=== PATIENT | female | born 1965 | race Caucasian/White ===

== ENCOUNTER 2019-02-27 21:21 | Emergency (ER) | payer BC ==
[2019-02-27] MEDS ORDERED: Acetaminophen/HYDROcodone 325-10 MG Tab PO ONE ×2 (21:22→22:55)
--- NOTE | 2019-02-27 21:50 | EDM.PDOC ---
ED HPI GENERAL MEDICAL PROBLEM - General Chief Complaint: Upper Extremity Injury/Pain Stated Complaint: RT ARM PAIN Time Seen by Provider: 02/27/19 21:35 Source of Information: Reports: Patient - History of Present Illness INITIAL COMMENTS - FREE TEXT/NARRATIVE: pt c/o sudden onset of right shoulder pain while resting in bed, started about 30 minuts ago, describe it as sever and non-radiating, cant move her shoulder, denies Hx of similar problems , had a recent cardiac workup that was neg, pt denies injuries or heavy lifting or any other associated sx or concerns. right shoulder Pain Score (Numeric/FACES): 10 - Related Data Allergies Allergy/AdvReac Type Severity Reaction Status Date / Time ibuprofen [From Motrin IB] Allergy Hives Verified 02/27/19 21:37 nickel AdvReac Rash Verified 02/27/19 21:37 Penicillins AdvReac Nausea and Verified 02/27/19 21:37 Vomiting Home Meds: Home Meds Albuterol [Proventil HFA] 2 puff INH Q6H PRN 01/14/16 [History] Multivitamin [Multivitamins] 1 cap PO DAILY 01/14/16 [History] Triamcinolone Acetonide [Kenalog 0.1% Crm] 1 applic TOP BID PRN 01/14/16 [ History] Pindolol 5 mg PO BID 02/27/19 [History] Past Medical History HEENT History: Reports: None Cardiovascular History: Reports: Heart Murmur, Hypertension Other Cardiovascular History: MITRAL AND AORTIC VALVE DISORDER Respiratory History: Reports: Asthma, Bronchitis, Recurrent, Pneumonia, Recurrent Gastrointestinal History: Reports: None Genitourinary History: Reports: None [employer] History: Reports: , Prolapsed Uterus Musculoskeletal History: Reports: Fracture Neurological History: Reports: Migraines Psychiatric History: Reports: None Endocrine/Metabolic History: Reports: None Hematologic History: Reports: None Immunologic History: Reports: None Oncologic (Cancer) History: Reports: None Dermatologic History: Reports: Eczema - Infectious Disease History Infectious Disease History: Reports: Chicken Pox, Mumps, Shingles - Past Surgical History Head Surgeries/Procedures: Reports: None HEENT Surgical History: Reports: Tonsillectomy GI Surgical History: Reports: None Female Surgical History: Reports: Other (See Below) Endocrine Surgical History: Reports: None Neurological Surgical History: Reports: None Musculoskeletal Surgical History: Reports: Arthroscopic Knee Dermatological Surgical History: Reports: None Social & Family History - Family History Family Medical History: Noncontributory - Tobacco Use Smoking Status *Q: Never Smoker Second Hand Smoke Exposure: No - Caffeine Use Caffeine Use: Reports: Coffee - Recreational Drug Use Recreational Drug Use: No Review of Systems - Review of Systems Review Of Systems: See Below Constitutional: Denies: Chills, Fever Mouth/Throat: Reports: No Symptoms Respiratory: Reports: No Symptoms Cardiovascular: Reports: No Symptoms GI/Abdominal: Reports: No Symptoms Skin: Reports: No Symptoms Neurological: Reports: No Symptoms Psychiatric: Reports: No Symptoms ED EXAM, GENERAL - Physical Exam Exam: See Below Exam Limited By: No Limitations General Appearance: Alert, Anxious Head: Atraumatic, Normocephalic Neck: Supple, Non-Tender Respiratory/Chest: No Respiratory Distress, Lungs Clear Cardiovascular: Normal Peripheral Pulses, Regular Rate, Rhythm GI/Abdominal: Normal Bowel Sounds, Soft, Non-Tender Extremities: Other (tender over the AC joint on right side , no joint deformities or swelling, ROM is very limited secondary to pain, cervical exam is normal, RUE is NVI. ) Course - Vital Signs Text/Narrative:: Xray results shows surgical neck fracture , pt is comfortable after toradol and ativan. a sling was applied , Rx on hydrocodone 20 tablets was provided, pt to follow with ortho in 2 days. Last Recorded V/S: Last Vital Signs Temp 36.4 C 02/27/19 21:30 Pulse 85 02/27/19 21:30 Resp 16 02/27/19 21:30 BP 135/76 02/27/19 21:30 Pulse Ox 97 02/27/19 21:30 - Orders/Labs/Meds Orders: Active Orders 24 hr Category Date Time Status Shoulder Comp Rt [CR] Stat Exams 02/27/19 21:51 Taken Labs: Laboratory Tests 02/27/19 02/27/19 Range/Units 22:00 22:00 WBC 5.9 (4.5-12.0) X10-3/uL RBC 4.17 (3.23-5.20) x10(6)uL Hgb 12.8 (11.5-15.5) g/dL Hct 38.3 (30.0-51.3) % MCV 91.9 (80-96) fL MCH 30.8 (27.7-33.6) pg MCHC 33.5 (32.2-35.4) g/dL RDW 12.0 (11.5-15.5) % Plt Count 255 (125-369) X10(3)uL MPV 8.1 (7.4-10.4) fL Neut % (Auto) 79.4 (46-82) % Lymph % (Auto) 15.4 (13-37) % Perkins % (Auto) 4.2 (4-12) % Eos % (Auto) 1 (1.0-5.0) % Baso % (Auto) 1 (0-2) % Neut # (Auto) 4.8 (1.6-8.3) # Lymph # (Auto) 0.9 (0.6-5.0) # Perkins # (Auto) 0.2 (0.0-1.3) # Eos # (Auto) 0.0 (0.0-0.8) # Baso # (Auto) 0.0 (0.0-0.2) # ESR 9 (0-20) mm/hr Sodium 130 L (135-145) mmol/L Potassium 4.3 (3.5-5.3) mmol/L Chloride 94 L (100-110) mmol/L Carbon Dioxide 23 (21-32) mmol/L BUN 20 H (7-18) mg/dL Creatinine 0.9 (0.55-1.02) mg/dL Est Cr Clr Drug Dosing 59.11 mL/min Estimated GFR (MDRD) > 60 (>60) BUN/Creatinine Ratio 22.2 H (9-20) Glucose 157 H (80-116) mg/dL Calcium 8.8 (8.6-10.2) mg/dL Meds: Medications Discontinued Medications Generic Name Dose Route Start Last Admin Trade Name Freq PRN Reason Stop Dose Admin Ketorolac Tromethamine 60 mg 02/27/19 21:51 02/27/19 21:54 Toradol IM 02/27/19 21:52 60 mg ONETIME ONE Administration Lorazepam 1 mg 02/27/19 22:05 02/27/19 22:33 Ativan IVPUSH 02/27/19 22:06 1 mg ONETIME ONE Administration Departure - Departure Time of Disposition: 22:55 Disposition: Home, Self-Care 01 Clinical Impression: Humerus fracture - Discharge Information Referrals: Aníbal Hurtado MD [Primary Care Provider] - Forms: ED Department Discharge - Problem List & Annotations (1) Humerus fracture SNOMED Code(s): 27212670 Code(s): S42.309A - UNSP FRACTURE OF SHAFT OF HUMERUS, UNSP ARM, INIT Status: Acute Current Visit: Yes - My Orders Last 24 Hours: My Active Orders 02/27/19 21:51 Shoulder Comp Rt [CR] Stat - Assessment/Plan Last 24 Hours: My Active Orders 02/27/19 21:51 Shoulder Comp Rt [CR] Stat
[2019-02-27] MEDS ORDERED: Ketorolac 60 MG/2 ML SDV IM ONE (21:51)
[2019-02-27] MEDS ORDERED: LORazepam 2 MG/ML SDV IVPUSH ONE (22:05)
[2019-02-27 23:23] VITALS: BP 119/52
== END 2019-02-27 23:20 | disposition home or self-care (01) ==
LOC: FB.ED 21:21
DX: S42.211A Unspecified displaced fracture of surgical neck of right humerus, initial encounter for closed fracture (principal); Z88.6 Allergy status to analgesic agent; Z88.8 Allergy status to other drugs, medicaments and biological substances; Z88.0 Allergy status to penicillin; Z79.899 Other long term (current) drug therapy; X58.XXXA Exposure to other specified factors, initial encounter
CPT/HCPCS: 36415; 73030; 80048; 85025; 85651; 96372; 96374; 99283; A9270; J1885; J2060

== ENCOUNTER 2024-09-30 03:40 | Emergency (ER) | payer OTHER ==
[2024-09-30 04:05] VITALS: BP 121/81; PULSE 63
[2024-09-30 04:37] LABS: BASOPHILS PERCENT AUTO 0.7 % (0.2-1.5); EOSINOPHILS PERCENT AUTO 0.7 % (0.6-8.1); HEMATOCRIT 37.8 % (34.2-48.2); HEMOGLOBIN 12.7 g/dL (11.4-15.5); LYMPHOCYTES ABSOLUTE AUTO 1.2 x10-3/uL (1.0-4.4); LYMPHOCYTES PERCENT AUTO 19.6 % (18.4-52.1); MEAN CORPUSCULAR HEMOGLOBIN 31.7 pg (23.9-33.9); MEAN CORPUSCULAR HGB CONC 33.7 g/dL (31.9-34.8); MEAN PLATELET VOLUME 9.3 fL (7.1-12.4); MONOCYTES ABSOLUTE AUTO 0.6 x10-3/uL (0.3-1.0); MONOCYTES PERCENT AUTO 9.3 % (4.4-15.7); NEUTROPHILS ABSOLUTE AUTO 4.4 x10-3/uL (1.5-6.3); NEUTROPHILS PERCENT AUTO 69.7 % (30.8-76.2); PLATELET COUNT,PLT 179 x10(3)uL (151-488); RED BLOOD CELL COUNT 4.02 x10(6)uL (3.60-5.20); RED CELL DISTRIBUTION WIDTH 15.2 % (12.3-16.5); WHITE BLOOD CELL COUNT,WBC 6.3 x10-3/uL (3.0-10.3)
[2024-09-30 04:40] LABS: BLOOD UREA NITROGEN,BUN 24 mg/dL (7-18); CALCIUM 8.7 mg/dL (8.6-10.2); CARBON DIOXIDE,CO2 26 mmol/L (21-32); CHLORIDE,CL 103 mmol/L (100-110); EST CRCL DRUG DOSING (CG) 51.66 mL/min; ESTIMATED GFR 64 mL/min (>60); GLUCOSE RANDOM 152 mg/dL (80-116); POTASSIUM,K 3.5 mmol/L (3.5-5.3); SODIUM,NA 140 mmol/L (135-145)
[2024-09-30 04:46] LABS: A/G RATIO 1.4; ALANINE AMINOTRANSFERASE,ALT 129 U/L (12-36); ALBUMIN 3.4 g/dL (3.2-4.6); ALKALINE PHOSPHATASE 51 IU/L (56-112); ASPARTATE AMNIOTRANSFERASE,AST 57 IU/L (5-25); BILIRUBIN TOTAL 0.8 mg/dL (0.1-1.3); MAGNESIUM 1.9 mg/dL (1.8-2.5); PROTEIN TOTAL,TP 5.9 g/dL (6.0-8.0)
[2024-09-30 04:52] LABS: C-REACTIVE PROTEIN 0.79 mg/dL (<0.50)
[2024-09-30 04:55] LABS: TROPONIN I 96.1 pg/mL (4.0-60.3)
[2024-09-30] MEDS ORDERED: Sodium Chloride 0.9% 10 ML Syringe FLUSH PRN (05:04)
[2024-09-30] MEDS: Furosemide 40 MG/4 ML VIAL IVPUSH ONE (05:28)
== END 2024-09-30 06:21 ==
LOC: FB.ED 03:40
DX: I21.4 Non-ST elevation (NSTEMI) myocardial infarction (principal); I50.9 Heart failure, unspecified; E66.9 Obesity, unspecified; Z79.899 Other long term (current) drug therapy; Z88.0 Allergy status to penicillin; Z88.6 Allergy status to analgesic agent; Z91.048 Other nonmedicinal substance allergy status; Z68.29 Body mass index [BMI] 29.0-29.9, adult
CPT/HCPCS: 36415; 71046; 80053; 83735; 83880; 84484; 85025; 86140; 93005; 96374; 99285; J1940